=== PATIENT | female | born 1940 | race Caucasian/White ===

== ENCOUNTER 2022-08-08 12:13 | Emergency (ER) | payer OTHER ==
[~2022-08-08] VITALS: Ht 170.2 cm; Wt 50.4 kg
== END 2022-08-08 17:15 | disposition home or self-care (01) ==
LOC: ER 12:13
DX: R53.1 Weakness (principal); D64.9 Anemia, unspecified; R19.5 Other fecal abnormalities; E87.6 Hypokalemia; Z91.018 Allergy to other foods
CPT/HCPCS: 71045; 84484; 93005; 93010; A9270

== ENCOUNTER → 2022-08-08 | Outpatient (CLI) | payer OTHER ==
[2022-08-08 10:50] LABS: BASOPHILS ABSOLUTE AUTO 0.02 K/mm3 (0.00-0.23); BASOPHILS PERCENT AUTO 0 % (0-2); EOSINOPHILS PERCENT AUTO 0 % (0-6); Hematocrit 30.2 % (33.0-51.0); Hemoglobin 9.7 g/dL (11.5-16.0); IMMATURE GRAN ABSOLUTE AUTO 0.11 K/mm3 (0.00-0.10); IMMATURE GRAN PERCENT AUTO 1 % (0-1); LYMPHOCYTES ABSOLUTE AUTO 0.56 K/mm3 (0.84-5.20); LYMPHOCYTES PERCENT AUTO 4 % (21-46); MONOCYTES ABSOLUTE AUTO 1.44 K/mm3 (0.16-1.47); MONOCYTES PERCENT AUTO 9 % (4-13); Mean Corpuscular HGB 25.9 pg (26.0-34.0); Mean Corpuscular HGB Conc 32.1 g/dL (31.5-36.5); Mean Corpuscular Volume 81 fL (80-100); Mean Platelet Volume 9.4 fL (9.1-12.4); NEUTROPHILS ABSOLUTE AUTO 13.16 K/mm3 (1.96-9.15); NEUTROPHILS PERCENT AUTO 86 % (41-73); Platelet Count 656 K/mm3 (150-400); RDW Coefficient Variation 15.1 % (11.7-14.2); RDW Standard Deviation 44.2 fL (35.1-46.3); Red Blood Cell Count 3.74 M/mm3 (3.80-5.20); White Blood Cell Count 15.29 K/mm3 (4.00-11.30)
[2022-08-08 11:10] LABS: Bun/Creatinine Ratio 23.8 (12.0-20.0); Creatinine, Blood 1.05 mg/dL (0.40-1.00); Potassium, Blood 3.1 mmol/L (3.5-5.5); Thyroid Stimulating Hormone 1.142 uIU/mL (0.360-4.800)
== END | disposition home or self-care (01) ==
LOC: LAB SHORT 10:45
PROVIDERS: Physician Assistant Surgical
DX: K92.1 Melena (principal); R53.83 Other fatigue
CPT/HCPCS: 80048; 84443; 85025